=== PATIENT | female | born 1970 | race Caucasian/White ===

== ENCOUNTER 2017-01-25 09:29 | Day surgery (SDC) | payer BC ==
[~2017-01-25 09:29] MED LIST: ACETAMINOPHEN 1000MG/100 ML PREMIX IV ONE; CEFAZOLIN 1 Gram 50 ML IVPB ONE; FAMOTIDINE 20MG TABLET PO ONE; MECLIZINE 25 MG TABLET PO ONE; METOCLOPRAMIDE 10 MG TABLET PO ONE
[2017-01-25 10:03] LABS: BASO % 0.5 % (0-6); EOS % 1.5 % (0-6); GRAN % 52.7 % (47-80); HEMATOCRIT 38.3 % (35.0-47.0); HEMOGLOBIN 12.8 gm/dl (11.6-16.0); LYMPH % 36.6 % (16-45); MEAN CELL VOLUME 90.3 fl (81-97); MEAN CORPUSCULAR HEMOGLOBIN 30.2 pg (27-33); MEAN CORPUSCULAR HGB CONC 33.4 g/dl (32-36); MEAN PLATELET VOLUME 10.1 fl (7.4-10.4); MONO % 8.7 % (0-9); PLATELET COUNT 261 K/uL (130-400); RED BLOOD COUNT 4.24 M/uL (3.80-5.40); RED CELL DISTRIBUTION WIDTH 12.3 % (11.5-14.5); WHITE BLOOD COUNT W/O DIFF 3.9 K/uL (4.2-12.2)
[2017-01-25] MEDS ORDERED: HYDROMORPHONE HCL 2 MG/ML VIAL IV ONE (13:56)
[2017-01-25] MEDS ORDERED: HYDROCODONE/APAP 5/325MG TABLET PO ONE (13:56)
[2017-01-25] MEDS ORDERED: BUPIVACAINE 0.25% W/EPI MPF 30ML VIAL IVP ONE (13:56)
[2017-01-25] MEDS ORDERED: SEVOFLURANE 250 ML INH ONE (14:00)
[2017-01-25] MEDS ORDERED: MIDAZOLAM HCL 2MG/2ML VIAL IV ONE (14:00)
[2017-01-25] MEDS ORDERED: LIDOCAINE 2% MDV (20MG/ML) 20ML VIAL IV ONE (14:00)
[2017-01-25] MEDS ORDERED: PROPOFOL 10 MG/ML VIAL IV ONE (14:00)
[2017-01-25] MEDS ORDERED: LABETALOL HCL 5MG/ML, 20ML VIAL SIVP ONE (14:00)
--- NOTE | 2017-01-27 11:50 | Operative Note ---
DATE OF SURGERY: 01/25/2017 PREOPERATIVE DIAGNOSIS: Recurrent ventral hernia. POSTOPERATIVE DIAGNOSIS: Recurrent ventral hernia. OPERATION: Laparoscopic ventral herniorrhaphy with mesh. Indication: The patient is a 46-year-old female who came to the clinic with pain and bulging of periumbilical region. She did have a prior open umbilical herniorrhaphy about 3 years ago but felt that she quickly recurred. The surgeon of record to the original one elected not to fix this. We did discuss repair, risks, benefits, and alternatives. Risks include bleeding, infection, recurrence , chronic pain, injury to underlying visceral structures. I felt laparoscopic approach would be best secondary to prior open repair. It appeared that she had actually had 2 hernias kind of clustered together in the same region. PROCEDURE: All risks were understood and she was therefore taken to the operating room and placed in a supine position. General anesthesia was administered per department of anesthesia. The patient's abdomen was prepped and draped in the usual fashion. Adequate timeout was performed. She received preoperative antibiotic. Orogastric tube was inserted per the department of anesthesia. At this time the left upper quadrant region was anesthetized with a total of 2 mL of 0.25% Sensorcaine with epinephrine. A 2 cm incision was made. This was carried down to the anterior rectus fascia bluntly. At this time an 11 mm Visiport was placed. All the abdominal layers were traversed under direct visualization. The peritoneal cavity was entered. Adequate pneumoperitoneum was established. The entry site was inspected. There was no bowel injury noted. At this time an additional 5 mm right flank and 5 mm left flank ports were then placed. The patient had a clustering of 3 hernias just to the right of the navel. The patient also had a recurrent umbilical hernia. At this time the contents were reduced. I did have to take down the falciform ligament heading in the cephalad direction. The hernias were all fairly small in nature. At this time a 10 x 15 PROCEED mesh was obtained. Double scroll technique was used for where 4 preplaced cardinal stitches were placed on the mesh. Each side was scrolled upon itself and had placed additional stitch. This was placed in the peritoneal cavity. The cephalad and caudad transfascial sutures were grasped and held in place. Each side was unscrolled and held in place with additional transfascial stitch. The mesh was then tacked in place in a 360-degree fashion. The patient's body habitus was fairly thin, so we did not apply too much extra pressure for fear of placing the tacks through the skin. At this time the stitches were loosely tied down. There were skin dimpling, which were released. We did have excellent 4 cm overlap on all sides. The camera was flipped around. The bowel, stomach, and liver were all inspected and free of any injury. There was no bleeding noted. At this time pneumoperitoneum was released, all ports removed. The fascia was closed with 0 Vicryl in a figure-of- eight fashion. The skin at all 3 ports was closed with 4-0 Vicryl. All puncture sites were anesthetized with a total of about 10 mL of 0.25% Sensorcaine with epinephrine. The patient did tolerate the procedure well. CC: Chantel DE LA VEGA
== END 2017-01-25 13:26 | disposition home or self-care (01) ==
LOC: SUR 09:29
PROVIDERS: ATTEND Surgery
DX: K43.2 Incisional hernia without obstruction or gangrene (principal)
CPT/HCPCS: 49656; 00752; 85025; 81025; J0690; J1170